=== PATIENT | female | born 1955 | race Caucasian/White ===

== ENCOUNTER 2019-03-18 16:47 | Outpatient (REF) | payer BC, SELFPAY ==
--- NOTE | 2019-03-18 16:00 | PAPFT_PTH ---
PATIENT: Tyesha Anderson LOC: [facility]#:[id number] AGE/SX: 63/F ROOM: RE03/18/[address]: Sara Velez : 1955 BED: DIS: 03/18/2019 SPEC #: [id number] RECD: 03/19/19 13:02 STATUS: UDAY SALCIDO #: [id number] ALEXANDREA: 03/18/19 16:[address]: Sara Velez DEPT: FA Cytology RECD BY: Janis Lozano ENTERED: 03/19/19 13:02 SP TYPE: PAPFT OTHR DR: Roni Guzman Tissues: 1 - CX/ENDOCX FOR PAP SMEARS Procedures: PAP THIN PREP/[facility] Screening HPV DNA PROBE Comments: [id number]
[2019-03-18 20:59] LABS: HCT 42.8 % (36.0-46.0); Mean Corp. HGB Concentration 32.7 g/dL (32.0-36.0); Mean Corpuscular Hemoglobin 30.3 pg (27.0-33.0); Mean Corpuscular Volume 92.6 fL (80-95); Mean Platelet Volume 11.7 fL (8.0-11.0); Platelet Count 186 x1000/uL (130-400); RBC 4.62 m/cumm (4.00-5.20); RBC Distribution Width 15.3 % (11.7-14.6); White Blood Cell Count 5.83 k/cumm (4.4-10.8)
[2019-03-18 21:25] LABS: ALT 39 U/L (12-78); AST 37 U/L (15-37); Albumin 3.6 g/dL (3.4-5.0); Alkaline Phosphatase 73 U/L (46-116); BUN 18 mg/dL (7-18); Bilirubin, Total 0.3 mg/dL (0.2-1.0); CREATININE 0.75 mg/dL (0.55-1.02); Calcium 8.8 mg/dL (8.5-10.1); Chloride 104 mmol/L (98-107); Glucose 95 mg/dL (70-100); Potassium 3.9 mmol/L (3.5-5.1); Sodium 140 mmol/L (136-145); TSH (W/Ref FT4) 1.36 uIU/mL (0.358-3.74); Total Protein 6.7 g/dL (6.4-8.2)
== END 2019-03-18 17:07 ==
LOC: NCHCN 16:47
PROVIDERS: PCP Naturopath; Visit Provider Family Medicine
DX: E03.9 Hypothyroidism, unspecified (principal); E83.51 Hypocalcemia; Z00.00 Encounter for general adult medical examination without abnormal findings; Z12.4 Encounter for screening for malignant neoplasm of cervix; Z11.51 Encounter for screening for human papillomavirus (HPV); Z01.419 Encounter for gynecological examination (general) (routine) without abnormal findings
CPT/HCPCS: 80053; 85027; 88142; 84443; 87624

== ENCOUNTER 2019-10-04 16:29 | Outpatient (REF) | payer OTHER, SELFPAY ==
[2019-10-04 21:12] LABS: HCT 41.1 % (36.0-46.0); HGB 13.5 g/dL (12.0-15.5); Mean Corp. HGB Concentration 32.8 g/dL (32.0-36.0); Mean Corpuscular Hemoglobin 30.8 pg (27.0-33.0); Mean Corpuscular Volume 93.8 fL (80-95); Mean Platelet Volume 10.6 fL (8.0-11.0); Platelet Count 224 x1000/uL (130-400); RBC 4.38 m/cumm (4.00-5.20); White Blood Cell Count 5.12 k/cumm (4.4-10.8)
[2019-10-04 21:23] LABS: ALT 74 U/L (14-59); AST 64 U/L (15-37); Albumin 3.5 g/dL (3.4-5.0); Alkaline Phosphatase 92 U/L (46-116); Anion Gap 8.8 mmol/L (3-11); BUN 15 mg/dL (7-18); Bilirubin, Total 0.3 mg/dL (0.2-1.0); CO2 26.2 mmol/L (21.0-32.0); CREATININE 0.78 mg/dL (0.55-1.02); Calcium 8.7 mg/dL (8.5-10.1); Chloride 105 mmol/L (98-107); Glucose 109 mg/dL (70-100); Potassium 3.9 mmol/L (3.5-5.1); Sodium 140 mmol/L (136-145); Total Protein 6.4 g/dL (6.4-8.2)
[2019-10-04 21:28] LABS: Hemoglobin A1C 5.8 % (4.5-6.2)
== END 2019-10-04 16:49 ==
LOC: NCHCN 16:29
PROVIDERS: PCP Naturopath; Visit Provider Family Medicine
DX: D3A.020 Benign carcinoid tumor of the appendix (principal)
CPT/HCPCS: 80053; 85027; 83036

== ENCOUNTER 2019-11-04 00:34 | Outpatient (CLI) | payer OTHER, SELFPAY ==
--- NOTE | 2019-11-04 15:41 | DI.MAMMO_ITS ---
EXAM: MAMMO SCREENING CLINICAL HISTORY: SCREENING, Z12.31 TECHNIQUE: Mammograms were interpreted according to the usual protocol including computer analysis w [employer] CAD system, tomosynthesis and C-view imaging. FINDINGS: The breasts are of moderate density with fairly symmetrical distribution of fibroglandular tissue. N o dominant mass or clumped microcalcification is identified in either breast. Current examination is compared with previous examinations including September 2017 and there has been no gross interval lynne nge in appearance in comparison with previous studies. IMPRESSION: No specific evidence of malignancy at this time. Routine screening examinations are suggested at year ly intervals due to the family history of breast carcinoma. Category 1. Breast density, category B. BI-RADS Cat 1 - Negative. Breast Density - Category B - Scattered areas of fibroglandular density.
== END 2019-11-04 00:54 ==
PROVIDERS: PCP Family Medicine; Visit Provider Family Medicine
DX: Z12.31 Encounter for screening mammogram for malignant neoplasm of breast (principal); Z80.3 Family history of malignant neoplasm of breast
CPT/HCPCS: 77063; 77067

== ENCOUNTER 2019-11-18 15:17 | Outpatient (CLI) | payer OTHER, SELFPAY ==
[2019-11-18 16:19] LABS: D-Dimer 311 ng/mlFEU (<500)
== END 2019-11-18 15:37 ==
PROVIDERS: PCP Family Medicine; Visit Provider Nurse Practitioner Family
DX: M25.562 Pain in left knee (principal)
CPT/HCPCS: 36415; 85379

== ENCOUNTER 2020-02-14 04:02 | Outpatient (CLI) | payer OTHER, SELFPAY ==
[2020-02-14 13:54] LABS: Absolute Basophil Count 0.03 k/cumm (0.0-0.2); Absolute Eosinophil Count 0.11 k/cumm (0.0-0.7); Absolute Lymphocyte Count 1.85 k/cumm (1.2-3.4); Absolute Monocyte Count 0.47 k/cumm (0.11-0.7); Absolute Neutrophil Count 1.68 k/cumm (1.2-6.7); Basophils % 0.7; Eosinophils % 2.7; HCT 42.7 % (36.0-46.0); HGB 13.9 g/dL (12.0-15.5); Lymphocytes % 44.7; Mean Corp. HGB Concentration 32.6 g/dL (32.0-36.0); Mean Corpuscular Hemoglobin 30.3 pg (27.0-33.0); Mean Platelet Volume 9.6 fL (8.0-11.0); Monocytes % 11.4; Neutrophils % 40.5; Platelet Count 214 x1000/uL (130-400); RBC 4.59 m/cumm (4.00-5.20); RBC Distribution Width 14.6 % (11.7-14.6); White Blood Cell Count 4.14 k/cumm (4.4-10.8)
[2020-02-14 14:04] LABS: Prothrombin Time 21.2 sec (9.3-11.0)
[2020-02-14 14:05] LABS: INR 2.1 (0.9-1.1)
== END 2020-02-14 04:22 ==
PROVIDERS: PCP Family Medicine; Visit Provider Internal Medicine
DX: K62.5 Hemorrhage of anus and rectum (principal)
CPT/HCPCS: 36415; 85025; 85610

== ENCOUNTER 2020-11-09 00:06 | Outpatient (CLI) | payer OTHER, SELFPAY ==
--- NOTE | 2020-11-09 | DI.MAMMO_ITS ---
EXAM: MG MAMMO SCREENING CLINICAL HISTORY: SCREENING,Z12.31 TECHNIQUE: Bilateral full field digital CC and MLO mammographic images were obtained with 3D tomosyn thesis and utilizing computer aided detection (CAD). COMPARISON: Available for comparison. FINDINGS: Masses/Architectural Distortion: None seen. Microcalcifications: No suspicious pleomorphic-type are seen. Skin Thickening/Nipple Retraction: None. IMPRESSION: 1. No significant interval change with no specific features of malignancy noted. 2. Unless there is more urgent need, screening mammography is recommended, as per [employer] guidelines. BI-RADS Category 1 - Negative Breast Density - Category B - Scattered areas of fibroglandular density Breast density category C or D implies that the patient has dense breast tissue. Dense breast tissue is very common and is not abnormal but dense breast tissue can make it harder to find cancer on a ma mmogram. Also, dense breast tissue may increase their breast cancer risk. This information about the result of the mammogram report was provided to the patient to raise their awareness. Use this report when you speak with the patient about their risks for breast cancer, which includes their family hist ory. At that time, you may recommend for more screening tests (Ultrasound or MRI) as they might be us eful based on their risk. A negative radiographic report should not delay biopsy if a dominant or clinically suspicious mass is present. Up to ten percent of cancers are not identified on mammography. A negative report may reinforce clinical impression. Adenosis and dense breasts may obscure an underlying neoplasm. False positive reports average 6 to 10%. Patient will receive a letter notifying them of these results.
== END 2020-11-09 00:26 ==
PROVIDERS: PCP Family Medicine; Visit Provider Family Medicine
DX: Z12.31 Encounter for screening mammogram for malignant neoplasm of breast (principal)
CPT/HCPCS: 77063; 77067

== ENCOUNTER 2020-12-26 10:38 | Outpatient (CLI) | payer OTHER, SELFPAY ==
[2020-12-27 15:17] LABS: COVID-19 RT-PCR UVMMC Result Negative (Negative)
== END 2020-12-26 10:39 | disposition home or self-care (01) ==
PROVIDERS: PCP Family Medicine; Visit Provider Family Medicine
DX: J06.9 Acute upper respiratory infection, unspecified (principal)
CPT/HCPCS: U0003